=== PATIENT | female | born 1950 | race Caucasian/White ===

== ENCOUNTER 2017-03-15 11:03 | Inpatient (IN) ==
[2017-03-15] MEDS ORDERED: ONDANSETRON 4 MG/2 ML VIAL IV ONE (11:21)
[2017-03-15] MEDS: HYDROmorphone 2 MG/ML VIAL IV PRN ×4 (11:27→12:43)
--- NOTE | 2017-03-15 11:29 | Emergency Department Note ---
Abdominal Pain HPI - General Chief Complaint: Abdominal Pain Stated Complaint: Abd pain, Dark colored vomit Time Seen by Provider: 03/15/17 11:10 Source: patient, EMS Mode of arrival: EMS Limitations: no limitations - History of Present Illness HPI Narrative: 66-year-old female presents with abdominal pain and vomiting since 5:00 this morning. She has had some coffee-ground colored vomit today. She has cancer and it is spreading and she is no longer having treatment. She is not on hospice at this time. She has not been able to keep down the hydrocodone and she does not have her fentanyl patches here in town. She is nauseated at this time and states her pain is very significant. She has not been having normal bowel movements. She has not had a GI bleed in the past and has not needed a transfusion due to this. - Related Data Home Medications Medication Instructions Recorded Confirmed Aspirin [Pamela Chewable Aspirin] 81 mg PO DAILY 02/10/17 02/10/17 Citalopram [Celexa] 40 mg PO DAILY 02/10/17 02/10/17 Lisinopril/Hydrochlorothiazide 1 each PO DAILY 02/10/17 02/10/17 [Zestoretic 10-12.5 mg Tablet] Omeprazole [PriLOSEC] 20 mg PO BIDAC 02/10/17 02/10/17 Simvastatin [Zocor] 10 mg PO HS 02/10/17 02/10/17 amLODIPine [Norvasc] 10 mg PO DAILY 02/10/17 02/10/17 Previous Rx's Medication Instructions Recorded Potassium Chloride [Klor-Con] 20 meq PO [facility] #3 packet 02/10/17 Allergies Allergy/AdvReac Type Severity Reaction Status Date / Time cephalexin Allergy Intermediate RASH Verified 02/10/17 09:12 Penicillins [PENICILLINS] Allergy Unknown NONE Verified 02/10/17 09:12 sulfasalazine Allergy Unknown UNKNOWN Verified 02/10/17 09:12 Review of Systems All systems ED: reviewed and negative except as stated. 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 Limitations: no limitations General appearance: alert, other (in pain) Head: atraumatic Eye: Present: normal appearance. Absent: conjunctival injection Neck: Present: normal inspection, full ROM Chest: Present: normal inspection, symmetric chest wall rise Respiratory: Present: other (decreased in the lower lobes) Cardiovascular: Present: tachycardia, normal heart sounds Abdominal: Present: soft, tenderness, guarding, diminished bowel sounds. Absent : distention, rebound, rigidity Abdominal tenderness: Present: epigastrium, diffuse Extremities: Present: normal inspection, full ROM Neurological: Present: alert, oriented X3 Psychiatric: Present: anxious Skin: Present: warm, dry, intact Course Course Narrative: Will be admitted for comfort care and Hospice will be arranged Vital Signs Pulse Rate 107 H 03/15/17 11:04 Respiratory Rate 18 03/15/17 11:04 Blood Pressure 99/79 03/15/17 11:04 Pulse Oximetry (%) 99 03/15/17 11:04 Pulse Rate 99 H 03/15/17 14:14 Respiratory Rate 12 03/15/17 14:14 Blood Pressure 101/68 03/15/17 14:01 Pulse Oximetry (%) 98 03/15/17 14:14 Abdominal Pain - MDM Narrative Medical decision making narrative: Worsening labs and health. - Lab Data Lab results reviewed: Yes I reviewed the patient's lab results. Result diagrams: 03/15/17 11:30 03/15/17 11:30 Lab Results 03/15/17 03/15/17 03/15/17 Range/Units 11:30 11:30 11:30 WBC 12.3 H (4.5-11.0) K/mcL RBC 3.49 L (4.00-5.20) M/mcL Hgb 10.6 L (12.0-15.0) g/dL Hct 32.0 L (36.0-48.0) % MCV 91.8 (80.0-100.0) fL MCH 30.4 (26.0-34.0) pg MCHC 33.1 (31.0-36.0) g/dL RDW 18.2 H (11.5-14.5) % Plt Count 260 (140-440) K/mcL MPV 8.1 (7.4-10.4) fL Total Counted 100 Seg Neutrophils % 82 H (38-78) % Band Neutrophils % 1 (0-10) % Lymphocytes % 13 L (15-49) % Monocytes % (Manual) 4 (1-12) % Platelet Estimate Normal (NORMAL) RBC Morphology Abnorm A (NORMAL) Anisocytosis 1+ A (NONE SEEN) VBG Lactic Acid 4.2 H* (0.5-2.2) mmol/L Sodium 120 L (133-145) mmol/L Potassium 4.4 (3.3-5.1) mmol/L Chloride 80 L (96-108) mmol/L Carbon Dioxide 22 (22-30) mmol/L Anion Gap 18.0 H (8-16) BUN 43 H (8-23) mg/dl Creatinine 1.7 H (0.6-1.1) mg/dl GFR Calculation 31 Glucose 233 H (70-105) mg/dL Calcium 9.4 (8.6-10.4) mg/dl Total Bilirubin 0.8 (0.0-1.0) mg/dL AST 13 (0-37) U/l ALT 25 (0-40) U/l Alkaline Phosphatase 69 (39-117) U/L Total Protein 5.9 (5.9-8.4) gm/dL Albumin 3.0 L (3.2-5.2) gm/dL Globulin 2.9 (2.2-3.7) gm/dL Albumin/Globulin Ratio 1.0 (1.0-2.3) Lipase (7-60) U/L 03/15/17 Range/Units 11:30 WBC (4.5-11.0) K/mcL RBC (4.00-5.20) M/mcL Hgb (12.0-15.0) g/dL Hct (36.0-48.0) % MCV (80.0-100.0) fL MCH (26.0-34.0) pg MCHC (31.0-36.0) g/dL RDW (11.5-14.5) % Plt Count (140-440) K/mcL MPV (7.4-10.4) fL Total Counted Seg Neutrophils % (38-78) % Band Neutrophils % (0-10) % Lymphocytes % (15-49) % Monocytes % (Manual) (1-12) % Platelet Estimate (NORMAL) RBC Morphology (NORMAL) Anisocytosis (NONE SEEN) VBG Lactic Acid (0.5-2.2) mmol/L Sodium (133-145) mmol/L Potassium (3.3-5.1) mmol/L Chloride (96-108) mmol/L Carbon Dioxide (22-30) mmol/L Anion Gap (8-16) BUN (8-23) mg/dl Creatinine (0.6-1.1) mg/dl GFR Calculation Glucose (70-105) mg/dL Calcium (8.6-10.4) mg/dl Total Bilirubin (0.0-1.0) mg/dL AST (0-37) U/l ALT (0-40) U/l Alkaline Phosphatase (39-117) U/L Total Protein (5.9-8.4) gm/dL Albumin (3.2-5.2) gm/dL Globulin (2.2-3.7) gm/dL Albumin/Globulin Ratio (1.0-2.3) Lipase 202 H (7-60) U/L - Radiology Data Radiology results reviewed: Yes I reviewed the patient's radiology results. Subtotal atelectasis of the left lung. Suspect narrowing or obstruction of the left mainstem bronchus by a 4 cm left hilar mass. Suggest: Chest CT Normal Abdomen Disposition Pt seen by LOG SAWYER/PA only: No Clinical Impression: Small cell lung cancer Disposition: Xfer As Inpt ([facility]) Condition: Fair Referrals: Herbie Hylton PA-C [Primary Care Provider] -
[2017-03-15 12:04] LABS: Mean Cell Volume 91.8 fL (80.0-100.0); Mean Corpuscular HGB Conc 33.1 g/dL (31.0-36.0); Mean Corpuscular Hemoglobin 30.4 pg (26.0-34.0); Platelet Count 260 K/mcL (140-440); RBC 3.49 M/mcL (4.00-5.20); Red Cell Distribution Width 18.2 % (11.5-14.5)
[2017-03-15 12:23] LABS: ALT/SGPT 25 U/l (0-40); Alkaline Phosphatase 69 U/L (39-117); Blood Urea Nitrogen 43 mg/dl (8-23); Lipase 202 U/L (7-60)
[2017-03-15 12:31] LABS: Anisocytosis 1+ (NONE SEEN); Band Neutrophils % 1 % (0-10); Lymphocytes % 13 % (15-49); Monocytes % (Manual) 4 % (1-12); Platelet Estimate NORMAL (NORMAL); RBC Morphology ABNORM (NORMAL); Segmented Neutrophils % 82 % (38-78)
[2017-03-15] MEDS ORDERED: 0.9 % SODIUM CHLORIDE 1,000 ML IV ONE (12:47)
--- NOTE | 2017-03-15 13:19 | XRay Report ---
CLINICAL INFORMATION: Elevated white blood cell count COMPARISON: 02/10/2017 FINDINGS: There is now subtotal opacification of the left thorax with associated volume loss. This could represent obstruction of the left mainstem bronchus. Right lung is well expanded and clear. Cardiomediastinal silhouette is obscured by the opacified. Right thorax appears grossly normal. IMPRESSION: Subtotal atelectasis of the left lung. Suspect narrowing or obstruction of the left mainstem bronchus by a 4 cm left hilar mass. Suggest: Chest CT Interpreted and Authenticated by: Herbie Sinclair 03/15/17
--- NOTE | 2017-03-15 13:20 | XRay Report ---
CLINICAL INFORMATION: Abdominal pain COMPARISON: None. FINDINGS: The stool gas pattern is unremarkable. There is no free air, soft tissue mass, organomegaly or pathologic calcification. IMPRESSION: Normal abdomen Interpreted and Authenticated by: Herbie Sinclair 03/15/17
[2017-03-15] MEDS ORDERED: HYDROmorphone 2 MG/ML VIAL IV PRN (14:13)
--- NOTE | 2017-03-15 14:33 | Emergency Department Note ---
Abdominal Pain HPI - General Chief Complaint: Abdominal Pain Stated Complaint: Abd pain, Dark colored vomit Time Seen by Provider: 03/15/17 11:10 Source: patient, EMS Mode of arrival: EMS Limitations: no limitations - Related Data Home Medications Medication Instructions Recorded Confirmed Aspirin [Pamela Chewable Aspirin] 81 mg PO DAILY 02/10/17 03/15/17 Citalopram [Celexa] 40 mg PO DAILY 02/10/17 03/15/17 Lisinopril/Hydrochlorothiazide 1 each PO DAILY 02/10/17 03/15/17 [Zestoretic 10-12.5 mg Tablet] Omeprazole [PriLOSEC] 20 mg PO BIDAC 02/10/17 03/15/17 Simvastatin [Zocor] 10 mg PO HS 02/10/17 03/15/17 amLODIPine [Norvasc] 10 mg PO DAILY 02/10/17 03/15/17 Previous Rx's Medication Instructions Recorded Potassium Chloride [Klor-Con] 20 meq PO QAC #3 packet 02/10/17 Allergies Allergy/AdvReac Type Severity Reaction Status Date / Time cephalexin Allergy Intermediate RASH Verified 02/10/17 09:12 Penicillins [PENICILLINS] Allergy Unknown NONE Verified 02/10/17 09:12 sulfasalazine Allergy Unknown UNKNOWN Verified 02/10/17 09:12 Abdominal Pain PMH - Past Medical History Medical history: Reports: other (small cell lung cancer, metastasis to the brain ) Psychiatric history: Reports: no psych 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 Family history: Reports: no significant family history - Social History Smoking status: Former smoker Physical Exam Limitations: no limitations General appearance: alert, other (in pain) Course Vital Signs Pulse Rate 107 H 03/15/17 11:04 Respiratory Rate 18 03/15/17 11:04 Blood Pressure 99/79 03/15/17 11:04 Pulse Oximetry (%) 99 03/15/17 11:04 Pulse Rate 82 03/16/17 06:00 Respiratory Rate 20 03/16/17 06:00 Blood Pressure 103/66 03/15/17 15:16 Pulse Oximetry (%) 89 L 03/16/17 06:00 Abdominal Pain - Lab Data Result diagrams: 03/15/17 11:30 03/15/17 11:30 Lab Results 03/15/17 03/15/1718 Range/Units 11:30 11:30 11:30 WBC 12.3 H (4.5-11.0) K/mcL RBC 3.49 L (4.00-5.20) M/mcL Hgb 10.6 L (12.0-15.0) g/dL Hct 32.0 L (36.0-48.0) % MCV 91.8 (80.0-100.0) fL MCH 30.4 (26.0-34.0) pg MCHC 33.1 (31.0-36.0) g/dL RDW 18.2 H (11.5-14.5) % Plt Count 260 (140-440) K/mcL MPV 8.1 (7.4-10.4) fL Total Counted 100 Seg Neutrophils % 82 H (38-78) % Band Neutrophils % 1 (0-10) % Lymphocytes % 13 L (15-49) % Monocytes % (Manual) 4 (1-12) % Platelet Estimate Normal (NORMAL) RBC Morphology Abnorm A (NORMAL) Anisocytosis 1+ A (NONE SEEN) VBG Lactic Acid 4.2 H* (0.5-2.2) mmol/L Sodium 120 L (133-145) mmol/L Potassium 4.4 (3.3-5.1) mmol/L Chloride 80 L (96-108) mmol/L Carbon Dioxide 22 (22-30) mmol/L Anion Gap 18.0 H (8-16) BUN 43 H (8-23) mg/dl Creatinine 1.7 H (0.6-1.1) mg/dl GFR Calculation 31 Glucose 233 H (70-105) mg/dL Calcium 9.4 (8.6-10.4) mg/dl Total Bilirubin 0.8 (0.0-1.0) mg/dL AST 13 (0-37) U/l ALT 25 (0-40) U/l Alkaline Phosphatase 69 (39-117) U/L Total Protein 5.9 (5.9-8.4) gm/dL Albumin 3.0 L (3.2-5.2) gm/dL Globulin 2.9 (2.2-3.7) gm/dL Albumin/Globulin Ratio 1.0 (1.0-2.3) Lipase (7-60) U/L 03/15/17 Range/Units 11:30 WBC (4.5-11.0) K/mcL RBC (4.00-5.20) M/mcL Hgb (12.0-15.0) g/dL Hct (36.0-48.0) % MCV (80.0-100.0) fL MCH (26.0-34.0) pg MCHC (31.0-36.0) g/dL RDW (11.5-14.5) % Plt Count (140-440) K/mcL MPV (7.4-10.4) fL Total Counted Seg Neutrophils % (38-78) % Band Neutrophils % (0-10) % Lymphocytes % (15-49) % Monocytes % (Manual) (1-12) % Platelet Estimate (NORMAL) RBC Morphology (NORMAL) Anisocytosis (NONE SEEN) VBG Lactic Acid (0.5-2.2) mmol/L Sodium (133-145) mmol/L Potassium (3.3-5.1) mmol/L Chloride (96-108) mmol/L Carbon Dioxide (22-30) mmol/L Anion Gap (8-16) BUN (8-23) mg/dl Creatinine (0.6-1.1) mg/dl GFR Calculation Glucose (70-105) mg/dL Calcium (8.6-10.4) mg/dl Total Bilirubin (0.0-1.0) mg/dL AST (0-37) U/l ALT (0-40) U/l Alkaline Phosphatase (39-117) U/L Total Protein (5.9-8.4) gm/dL Albumin (3.2-5.2) gm/dL Globulin (2.2-3.7) gm/dL Albumin/Globulin Ratio (1.0-2.3) Lipase 202 H (7-60) U/L Disposition Pt seen by MARKETING INTERN/PA only: No Clinical Impression: Small cell lung cancer Disposition: Xfer As Inpt ([facility]) Condition: Fair
--- NOTE | 2017-03-15 14:48 | Emergency Department Note ---
ED Note Addendum Note Addendum: pt evaluated by nurse practioner. agree with diagnosis and treatment to be admitted for comfort care... Has Lung ca
--- NOTE | 2017-03-15 15:01 | Internal Med History&Physical ---
Medical - H&P: HPI Patient information: Note initiated : 03/15/17 at 2:57 pm Service Date, if different from initiated Date: [] Patient: Ella Simmons a 66 y/o F admitted on for Abd Pain, Dark Colored Vomit. Chief Complaint: [] History of present illness: Ms. Simmons is a 66 year old Female with small cell lung cancer, with metastasis, the patient presents to the ER today with complaints of intractable pain, abdominal pain, nausea vomiting, unable to keep oral meds down. The patient has been told by her oncologist that she is not a candidate for treatment any more, patient is aware that these are the last days for her. The patient had been prescribed some hydrocodone which she was taking, but they were not helping, she was also not able to tolerate po well and therefore her pain was being uncontrolled. Patient is no longer a candidate for treatment, and only wishes to persue comfort care measure, plans to get her pain under control, and hopefully go home with home hospice. The patient notes pain every where, in the trunk mostly, 7/10 on my eval can be as high as 10./10, has needed 6 doses of IV hydromorphone in the ER with partial relief. The patient nausea was helped by some zofran. Patients friend, brother and relatives present in the room, all understand that these are the last days, and we will be trying to achieve pain control, its very likely that she will not survive this hospitalization. Patient and family verbalize understanding. the patient has gen pain, some dizziness today, some headaches, dry mouth, nause and vomiting, no chest pain or shortness of brath, no urinary symptoms. All systems: reviewed and no additional remarkable complaints except as stated ( as per HPI) Medical - H&P: PMH Medical history: small cell lung cancer Family history: reviewed and not pertinent Social history: lives home, family plans to come and help from tomorrow Medical - H&P: Meds Home Medications Medication Instructions Recorded Confirmed Type Aspirin [Pamela Chewable Aspirin] 81 mg PO DAILY 02/10/17 02/10/17 History Citalopram [Celexa] 40 mg PO DAILY 02/10/17 02/10/17 History Lisinopril/Hydrochlorothiazide 1 each PO DAILY 01/06/18 01/06/18 History [Zestoretic 10-12.5 mg Tablet] Omeprazole [PriLOSEC] 20 mg PO BIDAC 02/10/17 02/10/17 History Potassium Chloride [Klor-Con] 20 meq PO QAC #3 packet 02/10/17 Rx Simvastatin [Zocor] 10 mg PO HS 02/10/17 02/10/17 History amLODIPine [Norvasc] 10 mg PO DAILY 02/10/17 02/10/17 History Allergies Allergy/AdvReac Type Severity Reaction Status Date / Time cephalexin Allergy Intermediate RASH Verified 02/10/17 09:12 Penicillins [PENICILLINS] Allergy Unknown NONE Verified 02/10/17 09:12 sulfasalazine Allergy Unknown UNKNOWN Verified 02/10/17 09:12 Medical - H&P: Exam - Constitutional Vitals: Pulse Resp BP Pulse Ox 98 H 8 L 90/66 96 03/15/17 14:54 03/15/17 14:54 03/15/17 14:46 03/15/17 14:54 Exam: GENERAL: The patient is a well-developed, well-nourished in no apparent distress. Is alert and oriented x3. VITAL SIGNS: Reviewed and as noted elsewhere. HEENT: Head is normocephalic and atraumatic. Extraocular muscles are intact. Pupils are equal, round, and reactive to light. Nares appeared normal. Mouth appears any without lesions. Mucous membranes are dry. NECK: Normal to inspection, Supple, No lymphadenopathy or thyromegaly. LUNGS: Air entry is bronchial on left side, and dimished on left base, right side has decreased breath sounds, no wheezing, crackles or rhonchi noted. No accessory muscles of respiration HEART: Regular rate and rhythm normal, S1 and S2 heard, no Gallop, S3 or Rub Noted, No Gross murmur heard. ABDOMEN: Soft, nontender, and nondistended. Positive bowel sounds. No hepatosplenomegaly was noted. EXTREMITIES: No cyanosis, clubbing, rash, lesions or edema. NEUROLOGIC: Cranial nerves II through XII are grossly intact. Motor and Sensory System Grossly Intact PSYCHIATRIC: Normal affect, Normal Mood. Appropriate Behavior. SKIN: No ulceration or wounds noted, No jaundice, No rash noted. Medical - H&P: Reslt - Labs CBC & Chem 7: 03/15/17 11:30 03/15/17 11:30 Labs: Short CBC 03/15/17 Range/Units 11:30 WBC 12.3 H (4.5-11.0) K/mcL Hgb 10.6 L (12.0-15.0) g/dL Hct 32.0 L (36.0-48.0) % Plt Count 260 (140-440) K/mcL BMP 03/15/17 11:30 Sodium 120 L Potassium 4.4 Chloride 80 L Carbon Dioxide 22 BUN 43 H Creatinine 1.7 H Glucose 233 H Calcium 9.4 Liver Function 03/15/17 Range/Units 11:30 Total Bilirubin 0.8 (0.0-1.0) mg/dL AST 13 (0-37) U/l ALT 25 (0-40) U/l Alkaline Phosphatase 69 (39-117) U/L Albumin 3.0 L (3.2-5.2) gm/dL Medical - H&P: A/P - Narrative A/P Narrative: A/P Intractable pain secondary to metastatic small cell cancer Lactic acidosis Hyponatermia possible post obstructive pneumonia Palliative care Plan admit as inpt for management of intractable pain, which has failed outpatient regime. comfort care goals start on fentanyl patch 50 mcg, continue SL morphine and prn ativan. Use iv morphine if pain not getting controlled by above regime. Goal is to get her on a regime she can use at home. No further labs or investigations given comfort care status Hold home meds, Plan to consult Home hospice if patient remains stable, Its plausible that the patient will not survive this hospital stay. family and patient aware of same.
[2017-03-15] MEDS ORDERED: ONDANSETRON 4 MG/2 ML VIAL IV PRN (15:41)
[2017-03-15] MEDS ORDERED: ACETAMINOPHEN 325 MG TABLET PO PRN (15:41)
[2017-03-15] MEDS ORDERED: IBUPROFEN 600 MG TABLET PO PRN (15:41)
[2017-03-15] MEDS ORDERED: LORazepam 2 MG/ML VIAL IV PRN (15:41)
[2017-03-15] MEDS ORDERED: MAGNESIUM HYDROXIDE 30 ML ORAL.SUSP PO PRN (15:41)
[2017-03-15] MEDS ORDERED: ALBUTEROL SULFATE 2.5 MG/3 ML NEBULIZER NEB PRN (15:41)
[2017-03-15] MEDS ORDERED: fentaNYL 50 MCG PATCH TOPICAL SCH (16:00)
[2017-03-15] MEDS: OMEPRAZOLE 20 MG CAPSULE PO SCH (16:28)
[2017-03-15] MEDS: KETOROLAC 15 MG/ML VIAL IV SCH (17:35)
[2017-03-15] MEDS ORDERED: SENNOSIDES 1 TABLET PO SCH (21:00)
[2017-03-15] MEDS: morphine 20 MG/ML ORAL.CONC SL PRN (21:12)
[2017-03-15] MEDS: DOCUSATE SODIUM 100 MG CAPSULE PO SCH (21:59)
[2017-03-16] MEDS: 0.9 % SODIUM CHLORIDE 10 ML SYRINGE IV SCH ×2 (01:27→06:09)
[2017-03-16] MEDS: KETOROLAC 15 MG/ML VIAL IV SCH ×3 (01:27→12:06)
[2017-03-16] MEDS: morphine 20 MG/ML ORAL.CONC SL PRN ×2 (02:58→07:49)
[2017-03-16] MEDS: OMEPRAZOLE 20 MG CAPSULE PO SCH (08:31)
[2017-03-16] MEDS: DOCUSATE SODIUM 100 MG CAPSULE PO SCH (12:01)
--- NOTE | 2017-03-16 13:17 | Death Note ---
Discharge Sum: Prov - Provider Patient information: Note initiated : 03/16/17 at 1:13 pm Service Date, if different from initiated Date: [] Patient: Ella Simmons a 66 y/o F admitted on 03/15/17 for Abd Pain, Dark Colored Vomit/Intractable Pain. Chief Complaint: [] Primary care physician: Herbie Hylton Admitting clinician: Tiffanie Fraga Consults: 03/15/17 13:39 Consult to Physician [CONS] Stat Comment: Consulting Provider: Tiffanie Fraga Reason For Exam: Physician to Consult Discharge Sum: Diag - PCOD Cause of : Lung mass Discharge Sum: Summary - Date and Time Date of admission: 03/15/17 15:32 Date of : 03/16/17 Time of : 12:22 - Summary Details: Ms. Simmons is a 66 year old Female with small cell lung cancer, with metastasis, the patient presented to the ER with complaints of intractable pain , abdominal pain, nausea vomiting, unable to keep oral meds down. The patient has been told by her oncologist that she is not a candidate for treatment any more, patient is aware that these are the last days for her. The patient had been prescribed some hydrocodone which she was taking, but they were not helping , she was also not able to tolerate po well and therefore her pain was being uncontrolled. Patient is no longer a candidate for treatment, and only wishes to persue comfort care measure, plans to get her pain under control, and hopefully go home with home hospice. The patient was admitted for pain control and comfort care Treated with fentanyl patch, as well as oral morphine The patient condition worsened today morning, she was not in pain, but her mental status was declining. She peacefully around 12.22 Family was at bedside including both daughters. - Additional Data Confirmation of as documented by pronouncing clinician: no pulse, no respirations, no heart sounds Family: at bedside Attending physician: Tiffanie Fraga Was code activated?: No Autopsy requested?: No Organ bank notified?: Yes Advance directives?: Yes Hospice patient?: Yes
== END 2017-03-16 22:20 | disposition expired | DRG 180 ==
LOC: ED 11:03 → ICU 15:32
PROVIDERS: ADMIT Internal Medicine; ATTEND Internal Medicine